=== PATIENT | female | born 1970 | race Caucasian/White ===

== ENCOUNTER 2018-02-16 18:14 | Inpatient (IN) ==
[2018-02-16] MEDS ORDERED: NALOXONE 0.4 MG/ML VIAL ONE (18:21)
[2018-02-16] MEDS ORDERED: SODIUM CHLORIDE 0.9% 1,000 ML IV STA (18:33)
[2018-02-16] MEDS ORDERED: NALOXONE 0.4 MG/ML VIAL IV STA (18:39)
[2018-02-16 18:41] LABS: Basophils % 0.7 % (0.0-0.8); Eosinophils % 0.7 % (0.00-10.9); Hematocrit 43.1 VOL% (35.7-47.0); Hemoglobin 14.5 GM/DL (12.0-16.0); Immature Granulocytes % 0.4 %; Lymphocytes % 18.6 % (21.3-54.2); Mean Corpuscular HGB Conc 33.6 GM/DL (32-36); Mean Corpuscular Hemoglobin 30 PG (27-34); Mean Corpuscular Volume 89.8 FL (87-102); Mean Platelet Volume 10.2 FL (9.6-12.0); Monocytes % 3.1 % (1.7-12.7); Neutrophils # 11.7 10*3/uL (1.4-7.4); Neutrophils % 76.5 % (38.7-73.9); Platelet Count 307 T/CUMM (130-400); Red Cell Distribution Width 12.4 % (9.3-17.3); White Blood Count 15.3 T/CUMM (4-12)
[2018-02-16 18:42] LABS: Basophils # 0.1 10*3/uL (0.0-0.2); Eosinophils # 0.1 10*3/uL (0.0-0.87); Immature Granulocytes Absolute 0.06 #; Lymphocytes # 2.9 10*3/uL (1.4-4.0); Monocytes # 0.5 10*3/uL (0.11-0.8)
[2018-02-16 18:58] LABS: Apearance,Urine CLEAR (Clear); Bilirubin,Urine Negative (Negative); Blood, Urine Moderate mg/dL (Negative); Glucose,Urine (UA) Negative (Negative); Ketones,Urine Negative (Negative); Nitrite,Urine Negative (Negative); Protein,Urine Negative; RBC,Urine 8 /HPF (0-4); Urine Color Straw (Yellow); Urine Specific Gravity 1.006 (1.001-1.035); Urine Urobilinogen < 2.0 EU/DL (0.2-1.0); WBC,Urine <1 /HPF (0-6)
[2018-02-16 18:59] LABS: Alanine Aminotransferase 22 U/L (13-56); Albumin 4.4 G/DL (3.4-5.0); Alkaline Phosphatase 90 U/L (45-117); Aspartate Amino Transferase 15 U/L (0-37); Bilirubin,Total < 0.39 MG/DL (0.2-1.0); Blood Urea Nitrogen 12 MG/DL (7-18); Calcium 8.9 MG/DL (8.5-10.1); Glucose 110 MG/DL (74-106); Osmolality,Calculated 268.2 MOS/KG (273-304); Potassium 3.2 MMOL/L (3.5-5.1); Sodium 134 MMOL/L (136-145); Total Protein 8.5 G/DL (6.4-8.3)
[2018-02-16 19:06] LABS: Acetaminophen < 2.0 UG/ML (10-30); Salicylate < 2.8 MG/DL (2.8-20)
[2018-02-16 19:07] LABS: Barbiturates Screen,Urine Negative (Negative); Benzodiazepines Screen,Urine Negative (Negative); Cannabinoid Screen,Urine Negative (Negative); Opiate Screen,Urine Negative (Negative); Phencyclidine Screen,Urine Negative (Negative)
[2018-02-16] MEDS: PROPOFOL 1,000 MG/100 ML BOTTLE IV SCH (20:15)
[2018-02-16] MEDS ORDERED: ALBUTEROL 2.5 MG/3 ML NEB RESP TX PRN (21:25)
[2018-02-16] MEDS ORDERED: ACETAMINOPHEN 325 MG TABLET PO PRN (21:25)
[2018-02-16 21:59] LABS: ABG Base Excess -6.1 MMOL/L (-2.5-2.5); ABG HCO3 19.5 MMOL/L (20-26); ABG Oxygen Saturation 99.9 % (95-100); ABG PCO2 36.2 MM HG (35-48); ABG PH 7.331 (7.35-7.45); ABG TCO2 16.6 MMOL/L (23-27); Allen Test Positive; Pt O2 Delivery Device Ventilator
[2018-02-16] MEDS ORDERED: MAGNESIUM SULF RIDER 4 GM in PREMIX 1 EACH IV PRN (22:02)
[2018-02-16] MEDS ORDERED: MAGNESIUM SULF RIDER 2 GM in PREMIX 1 EACH IV PRN (22:02)
[2018-02-17 00:49] LABS: Basophils # 0.1 10*3/uL (0.0-0.2); Basophils % 0.3 % (0.0-0.8); Eosinophils % 0.1 % (0.00-10.9); Hematocrit 42.2 VOL% (35.7-47.0); Hemoglobin 13.8 GM/DL (12.0-16.0); Immature Granulocytes % 0.3 %; Immature Granulocytes Absolute 0.05 #; Lymphocytes # 1.2 10*3/uL (1.4-4.0); Lymphocytes % 6.1 % (21.3-54.2); Mean Corpuscular HGB Conc 32.7 GM/DL (32-36); Mean Corpuscular Hemoglobin 30 PG (27-34); Mean Corpuscular Volume 91.1 FL (87-102); Mean Platelet Volume 10.4 FL (9.6-12.0); Monocytes % 5.2 % (1.7-12.7); Platelet Count 283 T/CUMM (130-400); Red Blood Count 4.63 MC/CUMM (3.8-5.5); Red Cell Distribution Width 12.6 % (9.3-17.3); White Blood Count 19.3 T/CUMM (4-12)
[2018-02-17 01:07] LABS: Calcium 8.2 MG/DL (8.5-10.1); Potassium 3.7 MMOL/L (3.5-5.1)
[2018-02-17] MEDS: SODIUM CHLORIDE 0.9% 1,000 ML IV SCH ×3 (01:09→12:10)
[2018-02-17 01:18] LABS: Lactic Acid 5.2 MMOL/L (0.4-2.0)
[2018-02-17 01:25] LABS: Band Neutrophils 3 % (0-10); Lymphocytes 12 % (20-55); Segmented Neutrophils 80 % (50-85); Total Cells Counted 100
[2018-02-17 01:26] LABS: Hypochromasia Slight; Platelet Estimate Normal
[2018-02-17] MEDS: PROPOFOL 1,000 MG/100 ML BOTTLE IV SCH ×3 (02:08→19:32)
[2018-02-17] MEDS ORDERED: SODIUM CHLORIDE 0.9% 1,000 ML IV ONE (02:16)
[2018-02-17] MEDS: ONDANSETRON 4 MG/2 ML VIAL IV PRN ×2 (02:30→07:03)
[2018-02-17] MEDS: LORazepam 2 MG/1 ML VIAL IV PRN ×2 (02:56→07:10)
[2018-02-17 03:44] LABS: ABG Base Excess -2.3 MMOL/L (-2.5-2.5); ABG HCO3 22.5 MMOL/L (20-26); ABG Oxygen Saturation 99.7 % (95-100); ABG PCO2 32.7 MM HG (35-48); ABG PH 7.422 (7.35-7.45); ABG TCO2 18.7 MMOL/L (23-27); Allen Test Positive; Pt O2 Delivery Device Ventilator
[2018-02-17] MEDS: PIPERACILLIN/TAZOBACTAM 3,375 MG in SODIUM CHLORIDE 0.9% 100 ML IV SCH ×3 (03:54→18:02)
[2018-02-17] MEDS ORDERED: ROCURONIUM 100 MG/10 ML VIAL IV ONE (04:32)
[2018-02-17] MEDS ORDERED: ETOMIDATE 20 MG/10 ML VIAL IV ONE (04:32)
[2018-02-17] MEDS ORDERED: PROMETHAZINE 25 MG/1 ML VIAL IM PRN (04:59)
[2018-02-17] MEDS: POTASSIUM CHLORIDE RIDER 10 MEQ in PREMIX 1 EACH IV PRN (07:59)
[2018-02-17] MEDS: ENOXAPARIN 40 MG/0.4 ML SYRINGE SUBCUT SCH (07:59)
[2018-02-17] MEDS: FLUoxetine 20 MG CAPSULE PO SCH (07:59)
[2018-02-18] MEDS: SODIUM CHLORIDE 0.9% 1,000 ML IV SCH ×2 (00:09→08:16)
[2018-02-18] MEDS: PIPERACILLIN/TAZOBACTAM 3,375 MG in SODIUM CHLORIDE 0.9% 100 ML IV SCH (03:02)
[2018-02-18 05:08] LABS: ABG Base Excess 0.1 MMOL/L (-2.5-2.5); ABG HCO3 24.5 MMOL/L (20-26); ABG Oxygen Saturation 98.6 % (95-100); ABG PCO2 38.6 MM HG (35-48); ABG PH 7.411 (7.35-7.45); ABG TCO2 22.1 MMOL/L (23-27); Allen Test Positive
[2018-02-18 05:38] LABS: Basophils # 0.1 10*3/uL (0.0-0.2); Basophils % 0.8 % (0.0-0.8); Eosinophils # 0.1 10*3/uL (0.0-0.87); Eosinophils % 1.5 % (0.00-10.9); Hematocrit 31.1 VOL% (35.7-47.0); Immature Granulocytes % 0.3 %; Immature Granulocytes Absolute 0.03 #; Lymphocytes # 1.4 10*3/uL (1.4-4.0); Lymphocytes % 15.9 % (21.3-54.2); Mean Corpuscular HGB Conc 33.4 GM/DL (32-36); Mean Corpuscular Hemoglobin 30 PG (27-34); Mean Corpuscular Volume 90.7 FL (87-102); Mean Platelet Volume 10.9 FL (9.6-12.0); Monocytes # 0.6 10*3/uL (0.11-0.8); Monocytes % 6.3 % (1.7-12.7); Neutrophils # 6.6 10*3/uL (1.4-7.4); Neutrophils % 75.2 % (38.7-73.9); Red Cell Distribution Width 12.7 % (9.3-17.3)
[2018-02-18 05:40] LABS: Hemoglobin 10.4 GM/DL (12.0-16.0); Platelet Count 183 T/CUMM (130-400); Red Blood Count 3.43 MC/CUMM (3.8-5.5); White Blood Count 8.8 T/CUMM (4-12)
[2018-02-18 05:43] LABS: Osmolality,Calculated 280.1 MOS/KG (273-304); Potassium 3.8 MMOL/L (3.5-5.1)
[2018-02-18 05:45] LABS: Lactic Acid 0.6 MMOL/L (0.4-2.0)
[2018-02-18] MEDS: POTASSIUM CHLORIDE RIDER 10 MEQ in PREMIX 1 EACH IV PRN (06:17)
[2018-02-18] MEDS ORDERED: FUROSEMIDE 20 MG/2 ML VIAL IV ONE (07:20)
[2018-02-18 08:03] VITALS: BP 133/71
[2018-02-18] MEDS: FLUoxetine 20 MG CAPSULE PO SCH (08:09)
[2018-02-18] MEDS: ENOXAPARIN 40 MG/0.4 ML SYRINGE SUBCUT SCH (08:09)
[2018-02-18] MEDS ORDERED: PANTOPRAZOLE 40 MG VIAL IV SCH (09:00)
== END 2018-02-18 10:08 | DRG 917 ==
LOC: EDUNIT# → EDBD → N.ED 18:14 → N.EDINP 20:45 → N.ICU 02-17 00:04
PROVIDERS: ADMIT Internal Medicine; ATTEND Internal Medicine